=== PATIENT | female | born 1965 | race Caucasian/White ===

== ENCOUNTER 2024-05-19 11:48 | Inpatient (IN) | payer MEDICARE, MEDICAID, SELFPAY ==
[2024-05-19] VITALS (7 sets, daily range): BP systolic 103–135; BP diastolic 63–85; PULSE 81–97; RESP 16–18; TEMP 36.4–36.8; O2SAT 90–92; BMI 30.9; BMI 30.7
--- NOTE | 2024-05-19 11:52 | XR_ITS ---
WS: [id number] Exam: XR chest 1V portable [id number] Date/Time of Exam: 05/19/2024 11:54 AM Reason For Exam: encephalopathy No priors. The lungs are clear and fully inflated. Normal cardiomediastinal silhouette. No pleural effusions. De generative changes of both shoulders. Marked gaseous dilatation of visualized colonic loops in the up per abdomen. Recommendations: A dedicated abdominal survey and/or abdominal pelvic CT scan with IV contrast might be considered for further work-up. XR/XR chest 1V portable [id number] IMPRESSION: 1. No acute cardiopulmonary finding. 2. Marked dilatation of visualized colonic loops in the upper abdomen. This danae ht represent chronic megacolon however acute colon obstruction could have this same appearance.
--- NOTE | 2024-05-19 11:52 | ECG_ITS ---
[facility] Test Date: 2024-05-19 Pat Name: Darlene Joseph Department: Room: Gender: Female Director Web: : 1965 Requested By: Giana Brito Order Number: [id number] Sigrid MD: Jermaine Chi M.D. Measurements Intervals Cache Rate: 91 P: 46 KS: 135 QRS: 26 QRSD: 98 T: 31 QT: 341 QTc: 421 Interpretive Statements SINUS RHYTHM POSSIBLE INFERIOR MYOCARDIAL INFARCTION , PROBABLY OLD [30 ms Q WAVE IN II/aVF] No previous ECG available for comparison Electronically Signed On 05-19-2024 23:01:13 CDT by Jermaine Chi M.D. [email or web address]
[2024-05-19 12:10] LABS: Basophils % 0.3 %; Eosinophils % 1.1 %; Hematocrit 45.1 % (36-47); Lymphocytes # 0.7 10^3/uL (0.8-4.8); Lymphocytes % 18.7 %; Mean Corpuscular HGB Conc 32.4 g/dL (30-55); Mean Corpuscular Hemoglobin 29.9 pg (27-33); Mean Corpuscular Volume 92.2 fl (85-98); Mean Platelet Volume 10.2 fL (7.4-10.4); Monocytes # 0.4 10^3/uL (0.2-0.9); Monocytes % 11.8 %; Neutrophils # 2.54 10^3/uL (1.8-7.7); Neutrophils % 67.8 %; Nucleated Red Blood Cells % 0 %; Platelet Count 277 10^3/cmm (157-399); Red Blood Count 4.89 10^6/uL (3.85-5.65); Red Cell Distribution Width 14.5 % (12.1-15.1); White Blood Count 3.74 10^3/uL (3.29-11.43)
--- NOTE | 2024-05-19 12:16 | XR_ITS ---
WS: [email or web address] Exam: XR abdomen 1V* [id number] Date/Time of Exam: 05/19/2024 12:20 PM Reason For Exam: abnormal bowel on chest xray Exam: XR abdomen 1V* [id number] No comparisons. There is marked gaseous distention of the colon. Maximal diameter of the hepatic flexure is 7.8 cm. N o free air identified. A bowel loop noted in the LEFT pelvis may represent a length of small bowel ve rsus sigmoid colon with diverticuli. No obvious organ enlargement. Recommendations: Contrast CT scan of the abdomen and pelvis is recommended for further work-up. XR/XR abdomen 1V* [id number] IMPRESSION: 1. Colonic dilatation as noted above. This may represent chronic megacolon vers us acute colonic obstruction. 2. No free air identified.
--- NOTE | 2024-05-19 12:17 | ED.C_ITS ---
HPI - Psych 2 General: Chief Complaint: Psychiatric Symptoms Stated Complaint: violent to staff Time Seen by Provider: 05/19/24 11:48 History of Present Illness: 58-year-old female with a history of schizoaffective disorder, ulcerative colitis, history of intestinal obstructions, and bipolar disorder who presents to the emergency room from [facility] with worsening behavioral problems. Witness statements say that she has been on eating strike for 5 days. That her behaviors are getting out of control. She was hitting staff with a box of tissues. Cussing at staff. Throwing the tissues at staff. Tried to throw her walker at staff. She does say she would kill herself with a knife. She has no chest pain and no abdominal pain. She had an abnormal bowel on x-ray and went back to push on her belly which was nontender and she was ravenously eating a cheeseburger. snf documentation mentions an unspecified bowel obstruction/volvulus 3-4 times in her history. Related Data Home Medications Medication Instructions Recorded Confirmed acetaminophen 325 mg tablet 325 mg PO BID Pain 05/19/24 05/19/24 (Tylenol) albuterol sulfate 90 mcg/actuation 1 puff inhalation Q6H PRN 05/19/24 05/19/24 aerosol inhaler obstructive pulmonary albuterol sulfate 90 mcg/actuation 1 inh inhalation QID PRN chronic 05/19/24 05/19/24 aerosol inhaler (Ventolin HFA) obdtructive pulmonary budesonide 0.5 mg/2 mL suspension 0.5 mg inhalation BID PRN acute 05/19/24 05/19/24 for nebulization cough buspirone 5 mg tablet 5 mg PO TID 05/19/24 05/19/24 cholecalciferol (vitamin D3) 25 50 mcg PO DAILY 05/19/24 05/19/24 mcg (1,000 unit) capsule (Vitamin D3) cyanocobalamin (vitamin B-12) 500 500 mcg PO DAILY 05/19/24 05/19/24 mcg tablet (Vitamin B-12) escitalopram oxalate 10 mg tablet 10 mg PO DAILY 05/19/24 05/19/24 guaifenesin 100 mg/5 mL oral liquid 200 mg PO Q8H PRN acute cough 05/19/24 05/19/24 ipratropium 0.5 mg-albuterol 3 mg 3 ml inhalation Q6H PRN acute cough 05/19/24 05/19/24 (2.5 mg base)/3 mL nebulization soln lactulose 10 gram/15 mL oral 15 ml PO DAILY PRN altered mental 05/19/24 05/19/24 solution status melatonin 3 mg tablet 3 mg PO DAILY 05/19/24 05/19/24 nystatin 100,000 unit/gram topical See Rx Instructions .Route 05/19/24 05/19/24 powder .COMPLEX PRN unspecified skin changes ondansetron 4 mg disintegrating 4 mg PO Q6H PRN Nausea And Vomiting 05/19/24 05/19/24 tablet paliperidone palmitate 117 mg/0.75 1 mg IM .MONTHLY 05/19/24 05/19/24 mL intramuscular syringe (Invega Sustenna) pantoprazole 40 mg tablet,delayed 40 mg PO DAILY 05/19/24 05/19/24 release polyethylene glycol 3350 17 4 g PO DAILY 05/19/24 05/19/24 gram/dose oral powder (Miralax) potassium chloride 20 mEq 20 meq PO DAILY 05/19/24 05/19/24 tablet,extended release(part/cryst) prazosin 1 mg capsule 1 mg PO BEDTIME 05/19/24 05/19/24 sennosides 8.6 mg-docusate sodium 1 tab-cap PO BEDTIME 05/19/24 05/19/24 50 mg tablet (Senna-S) simethicone 125 mg chewable tablet 125 mg PO TID PRN gas pain 05/19/24 05/19/24 trazodone 50 mg tablet 50 mg PO BEDTIME 05/19/24 05/19/24 valbenazine 80 mg capsule 80 mg PO DAILY 05/19/24 05/19/24 (Ingrezza) Allergies Allergy/AdvReac Type Severity Reaction Status Date / Time No Known Allergies Allergy Verified 05/19/24 11:55 Review of Systems 2 Narrative: Constitutional symptoms: Negative except as documented in HPI. Skin symptoms: Negative except as documented in HPI. Eye symptoms: Negative except as documented in HPI. ENMT symptoms: Negative except as documented in HPI. Respiratory symptoms: Negative except as documented in HPI. Cardiovascular symptoms: Negative except as documented in HPI. Gastrointestinal symptoms: Negative except as documented in HPI. Genitourinary symptoms: Negative except as documented in HPI. Musculoskeletal symptoms: Negative except as documented in HPI. Neurologic symptoms: Negative except as documented in HPI. Psychiatric symptoms: Negative except as documented in HPI. Endocrine symptoms: Negative except as documented in HPI. Physical Exam 2 Narrative: EXAM NARRATIVE: General: Alert, no acute distress. Skin: Warm, dry. Head: Normocephalic, atraumatic. Neck: Supple, trachea midline. Eye: Extraocular movements are intact. Ears, nose, mouth and throat: mucosa moist. Cardiovascular: Regular, Normal peripheral perfusion. Respiratory: Lungs are clear to auscultation, respirations are non-labored, breath sounds are equal, Symmetrical chest wall expansion. Gastrointestinal: Soft, Nontender, Non distended Musculoskeletal: Normal ROM, no deformity. Neurological: Alert and oriented, No focal neurological deficit observed. Psychiatric: Cooperative, very odd affect. Patient is voraciously eating a cheeseburger when I evaluate her. Course 2 Vital Signs: Vital signs: Vital Signs Temperature 98.3 F 05/19/24 11:49 Pulse Rate 97 05/19/24 11:49 Respiratory Rate 18 05/19/24 11:49 Blood Pressure 109/70 05/19/24 11:49 Pulse Oximetry 90 05/19/24 11:49 Oxygen Delivery Me thod Room Air 05/19/24 11:49 MDM - Psych Medical Decision Making Medical decision making: Differential diagnosis for patient with reported psychosis with plan for psychiatric admission including but not limited to and based on the above HPI, review of systems and physical exam: concerns for infection, alcohol intoxication, cardiac issues or other medical problems prior to psychiatric admission. Orders placed to evaluate differential diagnosis based on the above differential, HPI and physical exam labwork, ekg ordered to evaluate the pathologies and to clear the patient medically prior to psychiatric admission EKG: Time 1254. Rate 91. Normal sinus rhythm, No ST-T changes, no ectopy, normal [place] & QRS intervals, This was reviewed and interpreted by myself the ER physician at 1258 Chest x-ray: No acute process. No infiltrate. No pneumothorax. This was reviewed and interpreted by myself the ER physician. There is concern for megacolon on the chest x-ray so an abdominal film was done. Abdominal x-ray: Appears to have a megacolon. Patient is nontender and has been evaluated by general surgery so this is felt to be chronic and not acute. This was reviewed and interpreted by myself the emergency room physician. I also reviewed the radiology report. Lab Review: Laboratory results were reviewed and interpreted by myself the emergency room physician. - Medically cleared. - EKG shows no ischemic changes. - Blood alcohol level is negative, as well as salicylate and Tylenol. - Drug screen is positive for benzodiazepine - Patient does have a urinary tract infection - No anemia. - BUN and creatinine are within normal limits. I reviewed the patient's medical record. Reexamination: Patient has remained stable. She has had no behavioral issues while she is been here. She has been voraciously hungry and has eaten 2 trays of food. No focal motor deficits. No abdominal pain. No vomiting. Consultation: I spoke with Dr. Fernandes with general surgery who evaluated the films and evaluated the patient and feels that this is a chronic megacolon that would require no intervention at this time. Consultation: I spoke with Dr. Hartman with psychiatry. Given her instability and requirements for a walker he feels she would not be appropriate for the Neuropsych Unit but he will consult on the patient and she will be admitted to the hospitalist service. Consultation: I spoke with Dr. Olmedo with the hospitalist service and he agrees to admission. Assessment and plan: Schizoaffective disorder Behavioral issues Suicidal ideation Urinary tract infection Indigestion ?IV Rocephin and IV Pepcid given in the emergency room. -Admission to neuropsychiatric unit for continued evaluation and treatment. - All lab work was reviewed and interpreted personally by myself, the ER physician - Evaluation and treatment of this problem were appropriate in the emergency setting Lab Data 05/19/24 12:04 05/19/24 12:04 Radiology Impressions Chest X-Ray 05/19/24 11:52 IMPRESSION: 1. No acute cardiopulmonary finding. 2. Marked dilatation of visualized colonic loops in the upper abdomen. This might represent chronic megacolon however acute colon obstruction could have this same appearance. Abdomen X-Ray 05/19/24 12:16 IMPRESSION: 1. Colonic dilatation as noted above. This may represent chronic megacolon versus acute colonic obstruction. 2. No free air identified. Laboratory Results WBC 3.74 10^3/uL (3.29-11.43) 05/19/24 12:04 RBC 4.89 10^6/uL (3.85-5.65) 05/19/24 12:04 Hgb 14.60 g/dL (11.27-16.99) 05/19/24 12:04 Hct 45.1 % (36-47) 05/19/24 12:04 MCV 92.2 fl (85-98) 05/19/24 12:04 MCH 29.9 pg (27-33) 05/19/24 12:04 MCHC 32.4 g/dL (30-55) 05/19/24 12:04 RDW 14.5 % (12.1-15.1) 05/19/24 12:04 Plt Count 277 10^3/cmm (157-399) 05/19/24 12:04 MPV 10.2 fL (7.4-10.4) 05/19/24 12:04 Neut % (Auto) 67.8 % 05/19/24 12:04 Lymph % (Auto) 18.7 % 05/19/24 12:04 [place] % (Auto) 11.8 % 05/19/24 12:04 Eos % (Auto) 1.1 % 05/19/24 12:04 Baso % (Auto) 0.3 % 05/19/24 12:04 Neut # (Auto) 2.54 10^3/uL (1.8-7.7) 05/19/24 12:04 Lymph # (Auto) 0.7 10^3/uL (0.8-4.8) L 05/19/24 12:04 [place] # (Auto) 0.4 10^3/uL (0.2-0.9) 05/19/24 12:04 Eos # (Auto) 0.0 10^3/uL (0.0-0.8) 05/19/24 12:04 Baso # (Auto) 0.0 10^3/uL (0.0-0.1) 05/19/24 12:04 Nucleated RBC % (auto) 0 % 05/19/24 12:04 Nucleated RBCs # 0.0 /100WBC 05/19/24 12:04 Sodium 137 mmol/L (136-145) 05/19/24 12:04 Potassium 4.3 mmol/L (3.5-5.1) 05/19/24 12:04 Chloride 102 mmol/L (98-107) 05/19/24 12:04 Carbon Dioxide 25 mmol/L (22-29) 05/19/24 12:04 Anion Gap 14.3 (5-19) 05/19/24 12:04 BUN 19 mg/dL (8-23) 05/19/24 12:04 Creatinine 0.7 mg/dL (0.5-0.9) 05/19/24 12:04 GFR Calculation 85.4 mL/min (90-130) L 05/19/24 12:04 Glucose 93 mg/dL (65-115) 05/19/24 12:04 Calculated Osmolality 286 mOsm/kg (285-295) 05/19/24 12:04 Lactic Acid 0.8 mmol/L (0.5-2.2) 05/19/24 12:04 Calcium 9.3 mg/dL (8.5-10.5) 05/19/24 12:04 Total Bilirubin 0.6 mg/dL (0.15-1.2) 05/19/24 12:04 AST 9 U/L (0-32) 05/19/24 12:04 ALT 7 U/L (0-33) 05/19/24 12:04 Alkaline Phosphatase 154 U/L (35-105) H 05/19/24 12:04 C-Reactive Protein 28.9 mg/L (0.0-4.9) H 05/19/24 12:04 Total Protein 7.2 g/dL (6.6-8.7) 05/19/24 12:04 Albumin 4.0 g/dL (3.5-5.2) 05/19/24 12:04 Globulin 3.2 g/dL (1.3-4.6) 05/19/24 12:04 Procalcitonin 0.15 ng/mL (0-0.5) 05/19/24 12:04 TSH 1.02 uIU/mL (0.27-4.20) 05/19/24 12:04 Urine Color Dark yellow (Yellow) A 05/19/24 12:55 Urine Appearance Turbid (CLEAR) A 05/19/24 12:55 Urine pH 6.0 (5-7) 05/19/24 12:55 Ur Specific [place] 1.041 (1.005-1.030) H 05/19/24 12:55 Urine Protein 1+ (Negative) A 05/19/24 12:55 Urine Glucose (UA) Negative (Normal) 05/19/24 12:55 Urine Ketones 1+ (Negative) H 05/19/24 12:55 Urine Blood 1+ (Negative) A 05/19/24 12:55 Urine Nitrate Positive (Negative) A 05/19/24 12:55 Urine Bilirubin 2+ (Negative) H 05/19/24 12:55 Urine Urobilinogen 1.0 mg/dL (Negative) 05/19/24 12:55 Ur Leukocyte Esterase 2+ (Negative) A 05/19/24 12:55 Urine RBC 5-10 /hpf (0-2) H 05/19/24 12:55 Urine WBC 10-15 /hpf (0-5) H 05/19/24 12:55 Ur Squamous Epith Cells 6-10 /hpf (0-5) 05/19/24 12:55 Calcium Oxalate Crystal 40-55 /hpf H 05/19/24 12:55 Amorphous Sediment Not Reportable 05/19/24 12:55 Urine Bacteria 4+ /hpf (NONE) H 05/19/24 12:55 Hyaline Casts 6.26 /lpf 05/19/24 12:55 Salicylates < 0.3 mg/dL (3-10) L 05/19/24 12:04 Urine Opiates Screen Negative ng/mL (Negative) 05/19/24 12:55 Acetaminophen < 5.0 ug/mL (10-30) L 05/19/24 12:04 Ur Barbiturates Screen Negative ng/mL (Negative) 05/19/24 12:55 Ur Phencyclidine Scrn Negative ng/mL (Negative) 05/19/24 12:55 Ur Amphetamines Screen Negative ng/mL (Negative) 05/19/24 12:55 U Benzodiazepines Scrn Positive ng/mL (Negative) H 05/19/24 12:55 Urine Cocaine Screen Negative ng/mL (Negative) 05/19/24 12:55 U Marijuana (THC) Screen Negative ng/mL (Negative) 05/19/24 12:55 Ethyl Alcohol < 10 mg/dL (0-10) 05/19/24 12:04 Coronavirus (PCR) Negative (Negative) 05/19/24 12:56 Influenza A (PCR) Negative (Negative) 05/19/24 12:56 Influenza Type B (PCR) Negative (Negative) 05/19/24 12:56 RSV (PCR) Negative (Negative) 05/19/24 12:56 All radiology interpretation(s) finalized by discharge Discharge Plan Discharge Patient Disposition: Admitted As Inpatient Clinical Impression: Suicidal ideation, Chronic schizoaffective disorder, 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
[2024-05-19 12:46] LABS: Alanine Aminotransferase 7 U/L (0-33); Alkaline Phosphatase 154 U/L (35-105); Anion Gap 14.3 (5-19); Aspartate Amino Transferase 9 U/L (0-32); Blood Urea Nitrogen 19 mg/dL (8-23); Calcium 9.3 mg/dL (8.5-10.5); Carbon Dioxide 25 mmol/L (22-29); Chloride 102 mmol/L (98-107); Creatinine Clr Calc Pharmacy 88.3444; Globulin 3.2 g/dL (1.3-4.6); Glomerular Filtration Rate 85.4 mL/min (90-130); Glucose 93 mg/dL (65-115); Osmolality Calculated 286 mOsm/kg (285-295); Potassium 4.3 mmol/L (3.5-5.1); Sodium 137 mmol/L (136-145); Thyroid Stimulating Hormone 1.02 uIU/mL (0.27-4.20); Total Bilirubin 0.6 mg/dL (0.15-1.2); Total Protein 7.2 g/dL (6.6-8.7)
[2024-05-19 12:50] LABS: Acetaminophen < 5.0 ug/mL (10-30); Alcohol Level < 10 mg/dL (0-10); Salicylate < 0.3 mg/dL (3-10)
[2024-05-19 13:06] LABS: Bilirubin Urine 2+ (Negative); Blood Urine 1+ (Negative); Glucose Urine UA Negative (Normal); Ketones Urine 1+ (Negative); Leukocyte Esterase Urine 2+ (Negative); Nitrate Urine Positive (Negative); Protein Urine 1+ (Negative); Urine Appearance Turbid (CLEAR); Urine Color Dark Yellow (Yellow)
[2024-05-19 13:13] LABS: Amphetamines Screen Urine Negative (Negative); Barbiturates Screen Urine Negative (Negative); Benzodiazepines Screen Urine Positive (Negative); Cocaine Screen Urine Negative (Negative); Opiate Screen Urine Negative (Negative); PCP Screen Urine Negative (Negative); THC Screen Urine Negative (Negative)
[2024-05-19 13:24] LABS: Hyaline Casts Urine 6.26 /lpf
[2024-05-19 13:31] LABS: Specific Gravity, Urine 1.041 (1.005-1.030)
[2024-05-19 13:34] LABS: Add Urine Culture? Yes; Bacteria Urine 4+ /hpf; Calcium Oxalate Crystals Urine 40-55 /hpf
[2024-05-19] MEDS: cephALEXin 500 mg Capsule PO (13:40)
[2024-05-19 13:42] LABS: Covid PCR NEGATIVE (Negative); Influenza A NEGATIVE (Negative); Influenza B NEGATIVE (Negative); Respiratory Syncytial Virus Ce NEGATIVE (Negative)
--- NOTE | 2024-05-19 14:00 | W.PM.PSYCONS ---
Providers/Reason for Consult Consulting Physican/Specialty*: Onesimo Hartman MD/Psychiatry Reason for Consult*: suicidal ideation Psych Consult HPI History of Present Illness Darlene Joseph is a 58 year old female admitted with complaints of abdominal discomfort with a history of constipation for the past 3 days and no bowel movements. She states that she had been residing at the [facility] for the past 2 weeks. She reports that she has been feeling suicidal and stated that she was having thoughts of cutting herself with a sharp knife. She has no access to a sharp knife. She denied depression. She reports that she has a history of significant behavioral issues and states that she has been in a few nursing homes in the past. She states that she had been at the [facility] for 4 years prior to arriving at [facility]. She reports that she has a history of auditory hallucinations but states that her voices have not been present recently. She states that she has been compliant with her existing oral medications except for the past 3 days at which time she states that her abdominal discomfort had caused her to not want to eat or take her pills. She does acknowledge having a history of being abusive towards staff and has a history of aggression that is led to her being unable to be cared for by her own family members. She had stated that she has struggled to make friends at her new facility in [place]. The patient reports that she still shares enjoyment in routine and previously enjoyable activities including reading romance novels and completing word searches. The patient reports that she has had suicidal thoughts for years. She denies any change in energy. She reports that she does not frequently cry. She denies any current drug use. Psychiatric history: Patient had suggested that she had been hospitalized more than 10 times for psychiatric reasons but states that she cannot remember when she was last psychiatrically hospitalized. She had reported that she has been seen by many psychiatrist in the past and reports that she has been on many medications. Medical history: As stated in medical note. 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 She reports that she required special education services. She had denied any history of sexual physical or emotional abuse. She had reported having significant behavioral problems along with having received special education services up until her high school graduation. She reports having worked a variety of jobs. She states that her sister is her legal guardian. She had reported that she has no children but had previously been for an unspecified years but is now as her had due to a pulmonary embolism. Meds Home Medications and Allergies Home Medications Medication Instructions Recorded Confirmed Last Taken Type acetaminophen 325 mg tablet 325 mg PO BID Pain 05/19/24 05/19/24 Unknown History (Tylenol) albuterol sulfate 90 mcg/actuation 1 puff inhalation Q6H PRN 05/19/24 05/19/24 Unknown History aerosol inhaler obstructive pulmonary albuterol sulfate 90 mcg/actuation 1 inh inhalation QID PRN chronic 05/19/24 05/19/24 Unknown History aerosol inhaler (Ventolin HFA) obdtructive pulmonary budesonide 0.5 mg/2 mL suspension 0.5 mg inhalation BID PRN acute 05/19/24 05/19/24 Unknown History for nebulization cough buspirone 5 mg tablet 5 mg PO TID 05/19/24 05/19/24 Unknown History cholecalciferol (vitamin D3) 25 50 mcg PO DAILY 05/19/24 05/19/24 Unknown History mcg (1,000 unit) capsule (Vitamin D3) cyanocobalamin (vitamin B-12) 500 500 mcg PO DAILY 05/19/24 05/19/24 Unknown History mcg tablet (Vitamin B-12) escitalopram oxalate 10 mg tablet 10 mg PO DAILY 05/19/24 05/19/24 Unknown History guaifenesin 100 mg/5 mL oral liquid 200 mg PO Q8H PRN acute cough 05/19/24 05/19/24 Unknown History ipratropium 0.5 mg-albuterol 3 mg 3 ml inhalation Q6H PRN acute cough 05/19/24 05/19/24 Unknown History (2.5 mg base)/3 mL nebulization soln lactulose 10 gram/15 mL oral 15 ml PO DAILY PRN altered mental 05/19/24 05/19/24 Unknown History solution status melatonin 3 mg tablet 3 mg PO DAILY 05/19/24 05/19/24 Unknown History nystatin 100,000 unit/gram topical See Rx Instructions .Route 05/19/24 05/19/24 Unknown History powder .COMPLEX PRN unspecified skin changes ondansetron 4 mg disintegrating 4 mg PO Q6H PRN Nausea And Vomiting 05/19/24 05/19/24 Unknown History tablet paliperidone palmitate 117 mg/0.75 1 mg IM .MONTHLY 05/19/24 05/19/24 Unknown History mL intramuscular syringe (Invega Sustenna) pantoprazole 40 mg tablet,delayed 40 mg PO DAILY 05/19/24 05/19/24 Unknown History release polyethylene glycol 3350 17 4 g PO DAILY 05/19/24 05/19/24 Unknown History gram/dose oral powder (Miralax) potassium chloride 20 mEq 20 meq PO DAILY 05/19/24 05/19/24 Unknown History tablet,extended release(part/cryst) prazosin 1 mg capsule 1 mg PO BEDTIME 05/19/24 05/19/24 Unknown History sennosides 8.6 mg-docusate sodium 1 tab-cap PO BEDTIME 05/19/24 05/19/24 Unknown History 50 mg tablet (Senna-S) simethicone 125 mg chewable tablet 125 mg PO TID PRN gas pain 05/19/24 05/19/24 Unknown History trazodone 50 mg tablet 50 mg PO BEDTIME 05/19/24 05/19/24 Unknown History valbenazine 80 mg capsule 80 mg PO DAILY 05/19/24 05/19/24 Unknown History (Emeryza) Allergies Allergy/AdvReac Type Severity Reaction Status Date / Time No Known Allergies Allergy Verified 05/19/24 11:55 PFSH NPU PFSH: Medical History (Updated 05/19/24 @ 19:25 by Onesimo Hartman MD) Chronic schizoaffective disorder Surgical History (Updated 05/19/24 @ 15:19 by Samson Mc MD) History of abdominal surgery History of left hip replacement Family History (Updated 05/19/24 @ 15:20 by Samson Mc MD) Other No pertinent family history Social History (Updated 05/19/24 @ 15:20 by Samson Mc MD) Smoking and tobacco/nicotine status: never used tobacco/nicotine Alcohol intake: never Substance/Drug Use: never Mental Status Exam MSE Comments: She is an obese white female who appeared her stated age who was pleasant and cooperative on interview. She had a mild speech impediment with normal rate and volume. There was no evidence of any abnormal involuntary motor movements tics or tremors appreciated. Her mood was described as okay. Her affect was slightly restricted. Her thought process was linear and logical. She revealed feeling suicidal with a plan to cut herself with a knife. She denied any homicidal ideation. There were no overall themes of depression noted or a sense of sadness despite reporting feeling suicidal. She was alert and oriented x 3. Her recent and remote memory appeared grossly intact. Her fund of knowledge appeared poor. She did not appear to be responding to internal stimuli. There was no clear evidence of delusional thinking. Her insight is impaired. Her judgment is poor. Her impulse control appeared fair at this time. Vitals/I&O/Wt Last Vital Signs Temp 98.3 F 05/19/24 11:49 Pulse 97 05/19/24 11:49 Resp 18 05/19/24 11:49 BP 109/70 05/19/24 11:49 Pulse Ox 90 05/19/24 11:49 O2 Del Method Room Air 05/19/24 11:49 Weight last 48 hrs Weight 81.647 kg Data NPU 05/19/24 12:04 05/19/24 12:04 A&P Assessment and plan (1) Chronic schizoaffective disorder: (2) Impulse control disorder, unspecified: (3) Suicidal ideation: Plan 58-year-old female with a history of borderline intellectual functioning along with a past history of reported auditory hallucinations currently on antipsychotic medications while reporting a history of depressed mood. She does endorse suicidal ideation at this time. She reported that the suicidal ideation appeared to be associated with her pain over the past 3 days. #1. Will attempt to gather collateral information. #2. Consider increase in Lexapro to 20 mg to target depression. I would recommend simplification of her psychiatric medications she is on an extremely low-dose of BuSpar and consolidation of these medications would probably be preferable to multiple serotonin agents. #3 will continue to follow. The patient may be a candidate for inpatient psychiatric hospitalization on a unit that is more capable of managing her problems given her intellectual functioning. Attestations NPU Medical Necessity Statement*: Continue medical treatment: will consider geropsychiatry transfer if necessary. Coding Level of Care Code Acute Code for g Fwd Diagnoses Chronic schizoaffective disorder F25.9 Impulse control disorder, unspecified F63.9 Suicidal ideation R45.851
--- NOTE | 2024-05-19 14:36 | P.CONIM_ITS ---
Providers/Reason For Consult 2 Consulting Physician/Specialty*: Dr. Fernandes general surgery Reason for Consult*: Incidental megacolon on KUB History of Present Illness History of Present Illness Darlene Joseph is a 58 year old female with history of behavioral problems. She is institutionalized. 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 Patient is currently tolerating a regular diet and has had 2 bowel movements today. Abdomen is unremarkable. Medications/Allergies Home Medications Medication Instructions Recorded Confirmed Last Taken Type acetaminophen 325 mg tablet 325 mg PO BID Pain 05/19/24 05/19/24 Unknown History (Tylenol) albuterol sulfate 90 mcg/actuation 1 puff inhalation Q6H PRN 05/19/24 05/19/24 Unknown History aerosol inhaler obstructive pulmonary albuterol sulfate 90 mcg/actuation 1 inh inhalation QID PRN chronic 05/19/24 05/19/24 Unknown History aerosol inhaler (Ventolin HFA) obdtructive pulmonary budesonide 0.5 mg/2 mL suspension 0.5 mg inhalation BID PRN acute 05/19/24 05/19/24 Unknown History for nebulization cough buspirone 5 mg tablet 5 mg PO TID 05/19/24 05/19/24 Unknown History cholecalciferol (vitamin D3) 25 50 mcg PO DAILY 05/19/24 05/19/24 Unknown History mcg (1,000 unit) capsule (Vitamin D3) cyanocobalamin (vitamin B-12) 500 500 mcg PO DAILY 05/19/24 05/19/24 Unknown History mcg tablet (Vitamin B-12) escitalopram oxalate 10 mg tablet 10 mg PO DAILY 05/19/24 05/19/24 Unknown History guaifenesin 100 mg/5 mL oral liquid 200 mg PO Q8H PRN acute cough 05/19/24 05/19/24 Unknown History ipratropium 0.5 mg-albuterol 3 mg 3 ml inhalation Q6H PRN acute cough 05/19/24 05/19/24 Unknown History (2.5 mg base)/3 mL nebulization soln lactulose 10 gram/15 mL oral 15 ml PO DAILY PRN altered mental 05/19/24 05/19/24 Unknown History solution status melatonin 3 mg tablet 3 mg PO DAILY 05/19/24 05/19/24 Unknown History nystatin 100,000 unit/gram topical See Rx Instructions .Route 05/19/24 05/19/24 Unknown History powder .COMPLEX PRN unspecified skin changes ondansetron 4 mg disintegrating 4 mg PO Q6H PRN Nausea And Vomiting 05/19/24 05/19/24 Unknown History tablet paliperidone palmitate 117 mg/0.75 1 mg IM .MONTHLY 05/19/24 05/19/24 Unknown History mL intramuscular syringe (Invega Sustenna) pantoprazole 40 mg tablet,delayed 40 mg PO DAILY 05/19/24 05/19/24 Unknown History release polyethylene glycol 3350 17 4 g PO DAILY 05/19/24 05/19/24 Unknown History gram/dose oral powder (Miralax) potassium chloride 20 mEq 20 meq PO DAILY 05/19/24 05/19/24 Unknown History tablet,extended release(part/cryst) prazosin 1 mg capsule 1 mg PO BEDTIME 05/19/24 05/19/24 Unknown History sennosides 8.6 mg-docusate sodium 1 tab-cap PO BEDTIME 05/19/24 05/19/24 Unknown History 50 mg tablet (Senna-S) simethicone 125 mg chewable tablet 125 mg PO TID PRN gas pain 05/19/24 05/19/24 Unknown History trazodone 50 mg tablet 50 mg PO BEDTIME 05/19/24 05/19/24 Unknown History valbenazine 80 mg capsule 80 mg PO DAILY 05/19/24 05/19/24 Unknown History (Ingrezza) Allergies Allergy/AdvReac Type Severity Reaction Status Date / Time No Known Allergies Allergy Verified 05/19/24 11:55 PFSH Acute 2 PFSH: Medical History (Updated 05/19/24 @ 15:22 by Samson Mc MD) Chronic schizoaffective disorder Surgical History (Updated 05/19/24 @ 15:19 by Samson Mc MD) History of abdominal surgery History of left hip replacement Family History (Updated 05/19/24 @ 15:20 by Samson Mc MD) Other No pertinent family history Social History (Updated 05/19/24 @ 15:20 by Samson Mc MD) Smoking and tobacco/nicotine status: never used tobacco/nicotine Alcohol intake: never Substance/Drug Use: never Vitals/I&O/Wt Last Vital Signs Temp 98.3 F 05/19/24 11:49 Pulse 97 05/19/24 11:49 Resp 18 05/19/24 11:49 BP 109/70 05/19/24 11:49 Pulse Ox 90 05/19/24 11:49 O2 Del Method Room Air 05/19/24 11:49 Weight last 48 hrs Weight 180 lb Physical Exam 2 Narrative: Chest: Unlabored breathing room air. No lymphadenopathy. Heart: Regular rate and rhythm. Abdomen: Soft, nontender, nondistended. No masses or lymphadenopathy. Data 05/19/24 12:04 05/19/24 12:04 A&P Assessment and plan (1) Abdominal pain: Plan 58-year-old female who presents for some behavioral issues. KUB performed an incidental chronic megacolon found on study. Patient is currently tolerating a regular diet, and having bowel movements. She is not complaining of abdominal pain on discussion with her. KUB findings incidental and there is no indication currently to continue working it up. Coding Level of Care Code 43889 Diagnoses Abdominal pain R10.9 Time Spent (min) 30
--- NOTE | 2024-05-19 14:40 | PC.NURSE ---
96 hour hold rights read and reviewed with patient. Patient verbalized understandings and copy of rights given to patient.
[2024-05-19] MEDS: cefTRIAXone 1,000 mg SDV 1000 MG IVP (14:42)
[2024-05-19] MEDS: famotidine 20 mg/2 mL INJ 40 MG IVP (14:44)
[2024-05-19 14:52] LABS: Lactic Sepsis W/Reflex 0.8 mmol/L (0.5-2.2)
--- NOTE | 2024-05-19 14:56 | CTR_ITS ---
PROCEDURE INFORMATION: Exam: CT Abdomen And Pelvis With Contrast Exam date and time: 05/19/2024 4:55 PM Age: 58 years old Clinical indication: Abdominal pain; Additional info: Abdominal pain, obstruction? TECHNIQUE: Imaging protocol: Computed tomography of the abdomen and pelvis with contrast. Radiation optimization: All CT scans at this facility use at least one of these dose optimization techniques: automated exposure control; mA and/or kV adjustment per patient size (includes targeted exams where dose is matched to clinical indication); or iterative reconstruction. Contrast material: OMNI 350; Contrast volume: 100 ml; Contrast route: INTRAVENOUS (IV); COMPARISON: CR XR abdomen 1V* [id number] 05/19/2024 12:35 PM RADIATION DOSE METRICS: Total DLP (mGy-cm): 797.66 FINDINGS: Lungs: Subsegmental bibasilar atelectasis. The visualized lung bases are otherwise grossly clear. Diaphragm: No evidence of diaphragmatic defect. Liver: Hepatic steatosis. No evidence of focal hepatic lesion. Gallbladder and biliary ducts: Unremarkable. No intra-hepatic or extra-hepatic biliary dilatation. Pancreas: Unremarkable. Spleen: Unremarkable. Adrenal glands: Unremarkable. Kidneys and ureters: There are simple appearing renal cysts for which dedicated imaging follow-up is not required. Otherwise no evidence of renal parenchymal abnormality. No hydronephrosis or ureteral stone. Stomach and bowel: Postsurgical changes compatible with prior subtotal colectomy. There are multiple dilated loops of small bowel measuring up to 3.8 cm with air-fluid levels. No discrete transition point, though there is relative change in caliber in the midabdomen (images 45-47 of series 3 there is mild adjacent swirling of the mesentery adjacent to the region in the left hemiabdomen raising the question of a transmesenteric hernia. There is distension of the distal bowel, possibly a chronic postoperative appearance, though difficult to discern given lack of prior exam for comparison. There is transit of oral contrast suggesting incomplete obstruction. There is change in caliber at the level of the rectosigmoid without significant swirling/torsion of the bowel, most suggestive of muscular contraction rather than volvulus. Appendix: Surgically absent. Intraperitoneal space: No evidence of free air or fluid collection. Vasculature: No aneurysmal dilatation or dissection of the abdominal aorta. The celiac trunk, SMA and ANTWON are grossly patent. No evidence of IVC thrombus. The portal vein, SMV and splenic veins are grossly patent. Lymph nodes: No adenopathy. Urinary bladder: Grossly unremarkable. Reproductive: Grossly unremarkable. Bones/joints: No evidence of acute fracture or aggressive osseous lesion. Multilevel chronic compression deformities of the lumbar spine with moderate-severe height loss of L1. Bony retropulsion at this level results in moderate central stenosis and likely contacting of the conus. Consider correlation with follow-up outpatient MRI to evaluate for neural impingement. Total left hip arthroplasty. Chronic fracture of the left pubic body/superior pubic ramus. Soft tissues: No evidence of fluid collection or hematoma in the superficial soft tissues. CT/CT abdomen pelvis w con* [id number] IMPRESSION: 1. Findings concerning for partial small bowel obstruction, possibly in the setting of adhesions or transmesenteric hernia in the central abdomen. 2. 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
[2024-05-19 14:57] LABS: Procalcitonin 0.15 ng/mL (0-0.5)
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
[2024-05-19 15:09] LABS: C Reactive Protein 28.9 mg/L (0.0-4.9)
[2024-05-19 15:32] LABS: NT Pro B Type Natriuretic Pept 76 pg/mL (0-125)
[2024-05-19 15:45] LABS: Ammonia 28 umol/L (11-51)
[2024-05-19] MEDS: iohexol 350 mg/mL 500 mL Btl (per mL) PO (16:07)
[2024-05-19 16:13] LABS: Lipase 17 U/L (13-60)
[2024-05-19 17:03] LABS: Chol HDL Ratio 2.49 mg/dL (0.0-4.40); Cholesterol 174 mg/dL (0-200); HDL Cholesterol 70 mg/dL (60-100); LDL Cholesterol Calculated 85 mg/dL (50-129); LDL HDL Ratio 1.21 RATIO (0.00-3.22); Thyroid Stimulating Hormone 1.04 uIU/mL (0.27-4.20); Triglycerides 96 mg/dL (0-150)
[2024-05-19 17:07] LABS: Estmated Average Glucose 111; Hemoglobin A1C 5.5 % (4.0-6.0)
[2024-05-19] MEDS: iohexol 350 mg/mL 500 mL Btl (per mL) IV (17:15)
[2024-05-19] MEDS: enoxaparin 40 mg/0.4 mL Syringe SUBCUT (17:33)
[2024-05-19] MEDS: prazosin 1 mg Capsule PO (20:50)
[2024-05-19] MEDS: BuSPIRONE 10 mg Tablet 5 MG PO (20:50)
[2024-05-19] MEDS: dextrose 5%-sod chloride 0.9% 1,000 ML 75 ML IV (20:50)
[2024-05-19] MEDS: trazodone 50 mg Tablet PO (20:51)
[2024-05-19] MEDS: ondansetron 2 mg/ML SDV 2 mL 4 MG IVP (22:12)
[2024-05-20] VITALS (8 sets, daily range): BP systolic 98–132; BP diastolic 58–77; PULSE 57–84; RESP 16–17; TEMP 36.5–36.9; O2SAT 90–94
[2024-05-20] MEDS: diphenhydrAMINE 25 mg Capsule PO (00:40)
[2024-05-20] MEDS: cefTRIAXone 1,000 mg SDV 1000 MG IVP (04:42)
[2024-05-20] MEDS: pantoprazole 40 mg SDV IVP ×2 (04:42→15:52)
[2024-05-20 05:46] LABS: Basophils % 0.5 %; Eosinophils # 0.1 10^3/uL (0.0-0.8); Eosinophils % 2.8 %; Lymphocytes # 1.3 10^3/uL (0.8-4.8); Lymphocytes % 30.8 %; Mean Corpuscular HGB Conc 31.5 g/dL (30-55); Mean Corpuscular Hemoglobin 29.5 pg (27-33); Mean Corpuscular Volume 93.7 fl (85-98); Mean Platelet Volume 10.9 fL (7.4-10.4); Monocytes # 0.5 10^3/uL (0.2-0.9); Monocytes % 11.3 %; Neutrophils # 2.35 10^3/uL (1.8-7.7); Neutrophils % 54.4 %; Nucleated Red Blood Cells % 0 %; Platelet Count 245 10^3/cmm (157-399); Red Blood Count 4.27 10^6/uL (3.85-5.65); Red Cell Distribution Width 14.6 % (12.1-15.1); White Blood Count 4.32 10^3/uL (3.29-11.43)
[2024-05-20 06:15] LABS: Alanine Aminotransferase < 5 U/L (0-33); Albumin Level 3.6 g/dL (3.5-5.2); Alkaline Phosphatase 135 U/L (35-105); Anion Gap 13.8 (5-19); Aspartate Amino Transferase 8 U/L (0-32); Blood Urea Nitrogen 12 mg/dL (8-23); Calcium 8.4 mg/dL (8.5-10.5); Carbon Dioxide 23 mmol/L (22-29); Chloride 103 mmol/L (98-107); Creatinine Clr Calc Pharmacy 94.9828; Globulin 2.1 g/dL (1.3-4.6); Glucose 98 mg/dL (65-115); Osmolality Calculated 282 mOsm/kg (285-295); Potassium 3.8 mmol/L (3.5-5.1); Sodium 136 mmol/L (136-145); Total Bilirubin 0.3 mg/dL (0.15-1.2); Total Protein 5.7 g/dL (6.6-8.7)
--- NOTE | 2024-05-20 08:30 | XR_ITS ---
WS: [id number] Exam: XR KUB portable [id number] Date/Time of Exam: 05/20/2024 8:32 AM Reason For Exam: partial sbo follow up Comparison 05/19/2024. Again noted is gaseous distention of the large bowel. There is radiographic contrast in the rectosigm oid colon. No free air. Organ margins are obscured. Intact LEFT hip prosthesis. XR/XR KUB portable [id number] IMPRESSION: 1. Continued dilatation of the colon. 2. Radiographic contrast seen in the rectosigmoid colon.
[2024-05-20] MEDS: escitalopram 10 mg Tablet PO (09:10)
[2024-05-20] MEDS: BuSPIRONE 10 mg Tablet 5 MG PO ×3 (09:10→20:58)
[2024-05-20] MEDS: dextrose 5%-sod chloride 0.9% 1,000 ML 75 ML IV (09:12)
--- NOTE | 2024-05-20 11:54 | PC.CHAP ---
Pastoral Care Encounter/Spiritual Assessment Type of Contact [] Declined rod greaser visit [] Patient/Family/Request visit [] Outpatient visit [] Follow-up visit [] Physician referral [] Code/Alert [x] Routine visit [] Staff referral [] Actively dying [] Patient sleeping [] Family support [] [] Out of room [] Palliative care [] [] Receiving care in room [] Pre-surgical visit [] Trauma [] Long length of stay [] ICU visit [] Other: Relational/Emotional Strength [] Patient feels connected with others/family/visitors/staff [x] Distress [x] Loneliness/isolation [] Abandonment Spirituality of Patient [] Person of Rani [] Attends Mormon of their Rani [] Believes in Prayer [] Reads Bible or Judaism materials [x] There are Spiritual issues to be addressed Stock Holder Interventions [x] Prayer [x] Active listening [] Non-anxious presence [] Spiritual/emotional support [] Crisis/trauma care [] Spiritual counseling [] Bereavement support [] Provided bereavement packet [] Provided Bible/devotional materials [] Provided toy/stuffed animal, coloring book to patient or family member [] Provided Communion [] Anointing/[place] [] Salvation [] Completed spiritual assessment [] Other: Impact on Illness or Injury [] Angry [x] Fearful [x] Anxious [] Often cries [x] Exhaustion [] Unable to work [] Unable to attend jain [] Unable to walk/stand [] Unable to read [] Unable to drive [] Unable to eat/drink [] Unable to sleep [] Unable to be with family [] Patient intubated [] Other: Summary P+St. Time spent with patient 10 Min
--- NOTE | 2024-05-20 15:45 | PC.SOCIAL ---
IMM updated Updated pt on IMM. no questions voiced. Provided pt a copy. Initialed, dated, & timed a copy & placed in chart.
[2024-05-20] MEDS: enoxaparin 40 mg/0.4 mL Syringe SUBCUT (15:52)
--- NOTE | 2024-05-20 17:00 | P.PN_ITS ---
Subjective 2 Subjective: Patient was seen this morning, she continues to complain of abdominal pain, bloating, she denies passing any gas, she has not had a bowel movement this morning denies feeling nauseous, no nausea or vomiting overnight, she continues to complain of suicidal ideation she tells me that I want to kill myself, she did not voice a plan to me specifically but according to nursing staff she had told one of the nursing staff that she wanted to take a knife and stab herself in the neck, denies any visual hallucinations, no auditory hallucinations, no command hallucinations Vitals/I&O/Wt Last Vital Signs Temp 97.7 F 05/20/24 15:58 Pulse 72 05/20/24 15:58 Resp 17 05/20/24 15:58 BP 113/77 05/20/24 15:58 Pulse Ox 93 05/20/24 15:58 O2 Del Method Room Air 05/20/24 15:58 05/20/24 05/20/24 05/20/24 06:59 14:59 22:59 Intake Total 927.5 / 927.5 Balance 927.5 / 927.5 Weight last 48 hrs Weight 75.705 kg Weight 76.113 kg Weight 81.647 kg Physical Exam 2 Const: COMMON NORMALS: no acute distress and patient oriented x3 Resp: COMMON NORMALS: normal respiratory effort, No retractions, No use of accessory muscles and clear to auscultation bilaterally AUSCULTATION: clear to auscultation bilaterally Cardio: COMMON NORMALS: regular rate, regular rhythm, S1 normal heart sound present and S2 normal heart sound present RATE: regular rate RHYTHM: r egular rhythm HEART SOUNDS: S1 normal heart sound present and S2 normal heart sound present GI: COMMON NORMALS: Normal to inspection, nondistended, normoactive bowel sounds present and non-tender OTHER: No guarding, no rebound, no rigidity Extremity: COMMON NORMALS: no pedal edema Neuro: COMMON NORMALS: patient oriented x3 Psych: COMMON NORMALS: mental status grossly normal Data 05/20/24 04:24 05/20/24 04:24 Micro: Microbiology 05/19/24 12:55 Urine Culture - Preliminary Urine,Clean Catch Gram Negative Rods 05/19/24 19:50 Blood Culture - Preliminary Blood SPECIMEN COLLECTED 05/19/24 19:27 Blood Culture - Preliminary Blood SPECIMEN COLLECTED A&P Assessment and plan (1) Urinary tract infection: (2) Abdominal pain: (3) Suicidal ideation: (4) Chronic schizoaffective disorder: Plan Urinary tract infection -Will continue Rocephin -Follow urine culture Partial small bowel obstruction CT/CT abdomen pelvis w con* [id number] IMPRESSION: 1. Findings concerning for partial small bowel obstruction, possibly in the setting of adhesions or transmesenteric hernia in the central abdomen. 2. 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 -Patient was not able to give me any specific details on the reason for her colectomy -This morning reports diffuse abdominal pain, lack of stooling, lack of gas, feeling nauseous however no episode of nausea vomiting overnight ? Plan -For now we will keep n.p.o. due to nausea abdominal pain, lack of stooling, spoke to general surgery, repeat KUB tomorrow, possibly start clears tomorrow based on clinical progress -Repeat KUB shows contrast in the rectosigmoid -Serial abdominal exams -General Surgery has been consulted by the ER Suicidal ideation -Reported active suicidal ideation this morning -Has a 96-hour hold -Suicide precautions, one-to-one sitter Chronic schizoaffective disorder -Reported agitation -Psychiatry has been consulted by ER PT OT evaluation Full code Lovenox for DVT prophylaxis Spoke to patient, spoke to general surgery Attestations 2 Medical Necessity Statement*: Patient requires hospitalization for UTI, partial small bowel obstruction, active suicidal ideation Diagnoses Urinary tract infection N39.0 Abdominal pain R10.9 Suicidal ideation R45.851 Chronic schizoaffective disorder F25.9
--- NOTE | 2024-05-20 17:58 | P.NPUPN_ITS ---
Subjective NPU 2 Subjective: 58-year-old female with a history of thalia izoaffective disorder admitted with suicidal ideation with a plan to cut herself with a knife in the neck. The patient had reported that she has no access to knives at her current facility. She reported that she had been at [facility] for 2 weeks after being transferred from another facility where she was there for 4 years. She had reported continued constipation here on the medical floor. She appeared pleasant and cooperative and appeared in no acute distress in the hospital. She reported no current pain at this time. Patient had remained on n.p.o. She had reported that she was bored. There have been no episodes of aggression noted here by her one-to-one. She has a legal guardian and despite this was on a 96- hour hold. She had minimized having problems with compliance with her medication at the [facility] facility. Mental Status Exam 2 MSE Comments: She is an obese white female who appeared her stated age who was pleasant and cooperative on interview. She had a mild speech impediment with normal rate and volume. There was no evidence of any abnormal involuntary motor movements tics or tremors appreciated. Her mood was described as okay. Her affect was euthymic. Her thought process was linear and logical. She did not endorse any suicidal ideation or homicidal ideation until she was asked about whether she had thoughts of hurting self at which she stated Yes while smiling. She denied any homicidal ideation. There were no overall themes of depression noted or a sense of sadness despite reporting feeling suicidal. She was alert and oriented x 3. Her recent and remote memory appeared grossly intact. Her fund of knowledge appeared poor. She did not appear to be responding to internal stimuli. There was no clear evidence of delusional thinking. Her insight is impaired. Her judgment is poor. Her impulse control appeared fair at this time. Vitals/I&O/Wt Last Vital Signs Temp 97.7 F 05/20/24 15:58 Pulse 72 05/20/24 15:58 Resp 17 05/20/24 15:58 BP 113/77 05/20/24 15:58 Pulse Ox 93 05/20/24 15:58 O2 Del Method Room Air 05/20/24 15:58 05/20/24 05/20/24 05/20/24 06:59 14:59 22:59 Intake Total 927.5 / 927.5 Balance 927.5 / 927.5 Weight last 48 hrs Weight 75.705 kg Weight 76.113 kg Weight 81.647 kg Data NPU 05/20/24 04:24 05/20/24 04:24 Micro: Microbiology 05/19/24 12:55 Urine Culture - Preliminary Urine,Clean Catch Gram Negative Rods 05/19/24 19:50 Blood Culture - Preliminary Blood SPECIMEN COLLECTED 05/19/24 19:27 Blood Culture - Preliminary Blood SPECIMEN COLLECTED Microbiology 05/19/24 12:55 Urine,Clean Catch Urine Culture - Preliminary Gram Negative Rods 05/19/24 19:50 Blood Blood Culture - Preliminary SPECIMEN COLLECTED 05/19/24 19:27 Blood Blood Culture - Preliminary SPECIMEN COLLECTED A&P Assessment and plan (1) Chronic schizoaffective disorder: (2) Impulse control disorder, unspecified: (3) Suicidal ideation: Plan 58-year-old female with a history of borderline intellectual functioning along with a past history of reported auditory hallucinations currently on antipsychotic medications while reporting a history of depressed mood. She does endorse suicidal ideation at this time. She reported that the suicidal ideation appeared to be associated with her pain over the past 3 days. #1. The patient's sister is legal guardian and is apparently aware that she is in the hospital. Her behavioral problems including her 3 day hunger strike appeared to be tied into her abdominal discomfort over past 5 days and lack of bowel movement prior to arrival. At this time, would make minimal changes to psychotropic medications and treat medically. When medically stabilized, discharge back to [facility] would be strongly recommended. She does not appear to have access to sharp weapons at this time and appears perpetually suicidal if asked. I would continue 1-1 at this time. #2. Consider increase in Lexapro to 20 mg to target depression. I would recommend simplification of her psychiatric medications she is on an extremely low-dose of BuSpar and consolidation of these medications would probably be preferable to multiple serotonin agents. Attestations NPU 2 Medical Necessity Statement*: Continue medical treatment: will consider geropsychiatry transfer if necessary. Coding Level of Care Code Acute Code for g Fwd Diagnoses Chronic schizoaffective disorder F25.9 Impulse control disorder, unspecified F63.9 Suicidal ideation R45.851
[2024-05-20] MEDS: trazodone 50 mg Tablet PO (20:58)
[2024-05-20] MEDS: prazosin 1 mg Capsule PO (20:58)
[2024-05-21] VITALS (8 sets, daily range): BP systolic 119–133; BP diastolic 74–88; PULSE 58–89; RESP 14–18; TEMP 36.7–37.1; O2SAT 90–96
[2024-05-21] MEDS: temazepam 15 mg Capsule PO ×2 (01:00→21:19)
[2024-05-21] MEDS: pantoprazole 40 mg SDV IVP ×2 (04:13→15:52)
[2024-05-21] MEDS: cefTRIAXone 1,000 mg SDV 1000 MG IVP (04:13)
[2024-05-21 05:26] LABS: Basophils % 0.6 %; Eosinophils # 0.1 10^3/uL (0.0-0.8); Eosinophils % 3.5 %; Hematocrit 39.5 % (36-47); Lymphocytes # 1.3 10^3/uL (0.8-4.8); Lymphocytes % 38.3 %; Mean Corpuscular HGB Conc 31.1 g/dL (30-55); Mean Corpuscular Hemoglobin 29.7 pg (27-33); Mean Corpuscular Volume 95.4 fl (85-98); Mean Platelet Volume 10.7 fL (7.4-10.4); Monocytes # 0.3 10^3/uL (0.2-0.9); Monocytes % 9.4 %; Neutrophils # 1.63 10^3/uL (1.8-7.7); Neutrophils % 47.6 %; Nucleated Red Blood Cells % 0 %; Platelet Count 214 10^3/cmm (157-399); Red Blood Count 4.14 10^6/uL (3.85-5.65); Red Cell Distribution Width 14.6 % (12.1-15.1); White Blood Count 3.42 10^3/uL (3.29-11.43)
[2024-05-21 05:53] LABS: Alanine Aminotransferase 6 U/L (0-33); Albumin Level 3.2 g/dL (3.5-5.2); Alkaline Phosphatase 125 U/L (35-105); Blood Urea Nitrogen 8 mg/dL (8-23); Calcium 8.5 mg/dL (8.5-10.5); Carbon Dioxide 23 mmol/L (22-29); Chloride 105 mmol/L (98-107); Globulin 2.4 g/dL (1.3-4.6); Glomerular Filtration Rate 162.8 mL/min (90-130); Glucose 77 mg/dL (65-115); Osmolality Calculated 279 mOsm/kg (285-295); Sodium 136 mmol/L (136-145); Total Bilirubin 0.3 mg/dL (0.15-1.2); Total Protein 5.6 g/dL (6.6-8.7)
[2024-05-21 05:55] LABS: Anion Gap 12.1 (5-19); Aspartate Amino Transferase 11 U/L (0-32); Creatinine Clr Calc Pharmacy 142.4742; Potassium 4.1 mmol/L (3.5-5.1)
--- NOTE | 2024-05-21 06:00 | XRR_ITS ---
PROCEDURE INFORMATION: Exam: XR Abdomen Exam date and time: 05/21/2024 9:26 AM Age: 58 years old Clinical indication: Abdominal tenderness; Additional info: Sbo TECHNIQUE: Imaging protocol: Radiologic exam of the abdomen. Views: Frontal supine view of the abdomen. 1 View. COMPARISON: CR XR KUB portable [id number] 05/20/2024 8:40 AM FINDINGS: Gastrointestinal tract: Similar contrast in the rectosigmoid. Stable gaseous distension of the large bowel. Bones/joints: Left hip arthroplasty. XR/XR KUB portable [id number] IMPRESSION: Similar dilatation of the colon. Residual contrast in the rectosigmoid region.
[2024-05-21] MEDS: BuSPIRONE 10 mg Tablet 5 MG PO ×3 (08:13→21:19)
[2024-05-21] MEDS: escitalopram 10 mg Tablet PO (08:14)
[2024-05-21] MEDS: sodium chloride 0.9% 500 ML 75 ML IV (09:42)
--- NOTE | 2024-05-21 11:07 | P.PN_ITS ---
Subjective 2 Subjective: No emesis Contrast of the rectosigmoid Abdomen benign Vitals/I&O/Wt Last Vital Signs Temp 98.1 F 05/21/24 08:00 Pulse 62 05/21/24 08:00 Resp 18 05/21/24 08:00 BP 130/80 05/21/24 08:00 Pulse Ox 92 05/21/24 08:00 O2 Del Method Nasal Cannula 05/21/24 08:00 O2 Flow Rate 2 05/21/24 08:00 05/20/24 05/21/24 05/21/24 22:59 06:59 14:59 Intake Total 1000 / 1927.5 Balance 1000 / 1927.5 Weight last 48 hrs Weight 166 lb 9 oz Weight 166 lb 14.4 oz Weight 167 lb 12.8 oz Weight 180 lb Physical Exam 2 Narrative: Chest: Unlabored breathing room air. No lymphadenopathy. Heart: Regular rate and rhythm. Abdomen: Soft, nontender, nondistended. No masses or lymphadenopathy. Data 05/21/24 04:38 05/21/24 04:38 Micro: Microbiology 05/19/24 19:50 Blood Culture - Preliminary Blood NEGATIVE TO DATE 05/19/24 19:27 Blood Culture - Preliminary Blood NEGATIVE TO DATE 05/19/24 12:55 Urine Culture - Preliminary Urine,Clean Catch Gram Negative Rods A&P Assessment and plan (1) SBO (small bowel obstruction): Plan 58-year-old female with SBO. Contrast in the rectosigmoid. Abdomen benign. Unfortunately not a reliable historian, per patient note not passing gas however no emesis. Okay for clear liquids. Attestations 2 Medical Necessity Statement*: Dr. Fernandes SBO Coding Level of Care Code 91789 Diagnoses SBO (small bowel obstruction) K56.609 Time Spent (min) 30
[2024-05-21] MEDS: enoxaparin 40 mg/0.4 mL Syringe SUBCUT (15:51)
--- NOTE | 2024-05-21 15:55 | P.PN_ITS ---
Subjective 2 Subjective: Patient was seen this morning, nursing staff at bedside, she reports no nausea overnight, no significant abdominal pain, she denies having a bowel movement, is not passing any gas she tells me that she is hungry, Vitals/I&O/Wt Last Vital Signs Temp 98.8 F 05/21/24 12:00 Pulse 69 05/21/24 14:00 Resp 16 05/21/24 12:00 BP 120/76 05/21/24 12:00 Pulse Ox 90 05/21/24 12:00 O2 Del Method Room Air 05/21/24 12:00 O2 Flow Rate 2 05/21/24 08:00 05/21/24 05/21/24 05/21/24 06:59 14:59 22:59 Output Total 200 / 200 Balance -200 / -200 Weight last 48 hrs Weight 75.551 kg Weight 75.705 kg Weight 76.113 kg Physical Exam 2 Const: COMMON NORMALS: no acute distress and patient oriented x3 Resp: COMMON NORMALS: normal respiratory effort, No retractions, No use of accessory muscles and clear to auscultation bilaterally AUSCULTATION: clear to auscultation bilaterally Cardio: COMMON NORMALS: regular rate, regular rhythm, S1 normal heart sound present and S2 normal heart sound present RATE: regular rate RHYTHM: r egular rhythm HEART SOUNDS: S1 normal heart sound present and S2 normal heart sound present GI: COMMON NORMALS: Normal to inspection, nondistended, normoactive bowel sounds present and non-tender Extremity: COMMON NORMALS: no pedal edema Neuro: COMMON NORMALS: patient oriented x3 Psych: COMMON NORMALS: mental status grossly normal Data 05/21/24 04:38 05/21/24 04:38 Micro: Microbiology 05/19/24 19:50 Blood Culture - Preliminary Blood NEGATIVE TO DATE 05/19/24 19:27 Blood Culture - Preliminary Blood NEGATIVE TO DATE A&P Assessment and plan (1) Urinary tract infection: (2) Abdominal pain: (3) Suicidal ideation: (4) Chronic schizoaffective disorder: Plan Urinary tract infection -Will continue Rocephin -Follow urine culture Partial small bowel obstruction CT/CT abdomen pelvis w con* [id number] IMPRESSION: 1. Findings concerning for partial small bowel obstruction, possibly in the setting of adhesions or transmesenteric hernia in the central abdomen. 2. 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 -Patient was not able to give me any specific details on the reason for her colectomy -This morning reports diffuse abdominal pain, lack of stooling, lack of gas, feeling nauseous however no episode of nausea vomiting overnight ? Plan -Possibly try clear liquids today based on clinical progress -Repeat KUB shows contrast in the rectosigmoid -Serial abdominal exams -General Surgery has been consulted by the ER Suicidal ideation -Reported active suicidal ideation this morning -Has a 96-hour hold -Suicide precautions, one-to-one sitter Chronic schizoaffective disorder -Reported agitation -Psychiatry has been consulted by ER PT OT evaluation Full code Lovenox for DVT prophylaxis Spoke to patient, spoke to general surgery, spoke to nursing staff, will possibly transition to clears based on general surgery's recommendations, repeat KUB pending Attestations 2 Medical Necessity Statement*: Patient requires hospitalization for partial small bowel obstruction, UTI, suicidal ideation Diagnoses Urinary tract infection N39.0 Abdominal pain R10.9 Suicidal ideation R45.851 Chronic schizoaffective disorder F25.9
--- NOTE | 2024-05-21 18:30 | PC.NURSE ---
Addendum entered by Joel Lobato RN 05/21/24 18:53: After this note was written, patient has a moderate sized liquid bowel movement. Original Note: SHift SUmmary: patient up to a chair for most of the day. Ambulated 5 times, about 150 feet each time. ALso worked with Physical therapy. Started on clear liquid diet Urine resulted positive for e. Coli KUB still shows Dilation of the colon. Not passing gas, No bowel movement.
--- NOTE | 2024-05-21 18:48 | W.PM.NPUPNS ---
Subjective NPU Subjective: 58-year-old female with a history of schizoaffective disorder admitted with suicidal ideation with a plan to cut herself with a knife in the neck. The patient denied having any thoughts of hurting herself or others. She had been compliant while on one-to-one. She had stated that she was doing okay. When asked about whether she would be able to go back to [facility] she stated maybe . The patient remained on clear liquid diet and she reported feeling hungry but continued to report abdominal discomfort. Mental Status Exam MSE Comments: She is an obese white female who appeared her stated age who was pleasant, polite and cooperative on interview. She had a mild speech impediment with normal rate and volume. There was no evidence of any abnormal involuntary motor movements tics or tremors appreciated. Her mood was described as okay. Her affect was euthymic. Her thought process was linear and logical. She did not endorse any suicidal ideation or homicidal ideation until she was asked about whether she had thoughts of hurting self and reported maybe. She denied any homicidal ideation. There were no overall themes of depression noted or a sense of sadness despite reporting feeling suicidal. She was alert and oriented x 3. Her recent and remote memory appeared grossly intact. Her fund of knowledge appeared poor. She did not appear to be responding to internal stimuli. There was no clear evidence of delusional thinking. Her insight is impaired. Her judgment is poor. Her impulse control appeared fair at this time. Vitals/I&O/Wt Last Vital Signs Temp 98.4 F 05/21/24 16:00 Pulse 69 05/21/24 16:00 Resp 14 05/21/24 16:00 BP 122/74 05/21/24 16:00 Pulse Ox 92 05/21/24 16:00 O2 Del Method Room Air 05/21/24 16:00 O2 Flow Rate 2 05/21/24 08:00 05/21/24 05/21/24 05/21/24 06:59 14:59 22:59 Intake Total 700 / 700 570 / 1270 Output Total 200 / 200 300 / 500 Balance 500 / 500 270 / 770 Weight last 48 hrs Weight 75.551 kg Weight 75.705 kg Data NPU 05/21/24 04:38 05/21/24 04:38 Micro: Microbiology 05/19/24 12:55 Urine Culture - Final Urine,Clean Catch Escherichia coli 10/24/24 19:50 Blood Culture - Preliminary Blood NEGATIVE TO DATE 05/19/24 19:27 Blood Culture - Preliminary Blood NEGATIVE TO DATE Microbiology 05/19/24 12:55 Urine,Clean Catch Urine Culture - Final Escherichia coli 05/19/24 19:50 Blood Blood Culture - Preliminary NEGATIVE TO DATE 05/19/24 19:27 Blood Blood Culture - Preliminary NEGATIVE TO DATE A&P Assessment and plan (1) Chronic schizoaffective disorder: (2) Impulse control disorder, unspecified: (3) Suicidal ideation: Plan 58-year-old female with a history of borderline intellectual functioning along with a past history of reported auditory hallucinations currently on antipsychotic medications while reporting a history of depressed mood. She does endorse suicidal ideation at this time. She reported that the suicidal ideation appeared to be associated with her pain over the past 3 days. #1. The patient's sister is legal guardian and is apparently aware that she is in the hospital. Her behavioral problems including her 3 day hunger strike appeared to be tied into her abdominal discomfort over past 5 days and lack of bowel movement prior to arrival. At this time, would make minimal changes to psychotropic medications and treat medically. When medically stabilized, discharge back to half-way would be strongly recommended. She does not appear to have access to sharp weapons at this time and appears perpetually suicidal if asked. I would continue 1-1 at this time. #2. Continue medications as prescribed. If medically stable in 2-3 days will make attempt to have patient discharged back to [facility]. Attestations NPU Medical Necessity Statement*: Continue medical treatment: Psychiatric hospitalization uncertain at this time. Coding Level of Care Code Acute Code for [facility] Diagnoses Chronic schizoaffective disorder F25.9 Impulse control disorder, unspecified F63.9 Suicidal ideation R45.851
[2024-05-21] MEDS: trazodone 50 mg Tablet PO (21:18)
[2024-05-21] MEDS: prazosin 1 mg Capsule PO (21:18)
[2024-05-22] VITALS (8 sets, daily range): BP systolic 107–129; BP diastolic 72–82; PULSE 58–90; RESP 16–20; TEMP 36.4–37.1; O2SAT 90–93
[2024-05-22] MEDS: cefTRIAXone 1,000 mg SDV 1000 MG IVP (04:47)
[2024-05-22] MEDS: pantoprazole 40 mg SDV IVP (04:47)
[2024-05-22 06:07] LABS: Basophils % 0.2 %; Eosinophils # 0.1 10^3/uL (0.0-0.8); Eosinophils % 2.7 %; Hematocrit 42.3 % (36-47); Lymphocytes # 1.2 10^3/uL (0.8-4.8); Lymphocytes % 26.2 %; Mean Corpuscular HGB Conc 32.4 g/dL (30-55); Mean Corpuscular Hemoglobin 30.9 pg (27-33); Mean Corpuscular Volume 95.3 fl (85-98); Mean Platelet Volume 10.2 fL (7.4-10.4); Monocytes # 0.4 10^3/uL (0.2-0.9); Monocytes % 9.9 %; Neutrophils # 2.68 10^3/uL (1.8-7.7); Neutrophils % 60.5 %; Nucleated Red Blood Cells % 0 %; Platelet Count 231 10^3/cmm (157-399); Red Blood Count 4.44 10^6/uL (3.85-5.65); Red Cell Distribution Width 14.5 % (12.1-15.1); White Blood Count 4.43 10^3/uL (3.29-11.43)
[2024-05-22 06:18] LABS: Alanine Aminotransferase < 5 U/L (0-33); Albumin Level 3.3 g/dL (3.5-5.2); Alkaline Phosphatase 133 U/L (35-105); Anion Gap 11.1 (5-19); Aspartate Amino Transferase 8 U/L (0-32); Blood Urea Nitrogen 5 mg/dL (8-23); Calcium 8.6 mg/dL (8.5-10.5); Carbon Dioxide 26 mmol/L (22-29); Chloride 102 mmol/L (98-107); Creatinine Clr Calc Pharmacy 113.7134; Globulin 2.5 g/dL (1.3-4.6); Glomerular Filtration Rate 125.9 mL/min (90-130); Glucose 90 mg/dL (65-115); Osmolality Calculated 277 mOsm/kg (285-295); Potassium 4.1 mmol/L (3.5-5.1); Sodium 135 mmol/L (136-145); Total Bilirubin 0.3 mg/dL (0.15-1.2); Total Protein 5.8 g/dL (6.6-8.7)
[2024-05-22] MEDS: BuSPIRONE 10 mg Tablet 5 MG PO ×3 (08:50→20:13)
[2024-05-22] MEDS: escitalopram 10 mg Tablet PO (08:50)
--- NOTE | 2024-05-22 14:07 | P.NPUPN_ITS ---
Subjective NPU 2 Subjective: 58-year-old female with a history of thalia izoaffective disorder admitted with suicidal ideation with a plan to cut herself with a knife in the neck. The patient remained on one-to-one observation. He had reported feeling okay. She had tolerated a clear liquid diet and was scheduled to advance to a regular diet soon. The patient had stated that she would be okay with returning to her place of living. She had reported that she had felt that the staff had not been helpful particularly with not helping with putting her legs up when going to sleep. She had not been aggressive and had been very compliant with the treatment medically. She did not appear to be attempting to engage in any self this injurious behavior. Mental Status Exam 2 MSE Comments: She is an obese white female who appeared her stated age who was pleasant, polite and cooperative on interview. She had a mild speech impediment with normal rate and volume. There was no evidence of any abnormal involuntary motor movements, tics or tremors appreciated. Her mood was described as allright. Her affect was slightly restricted. Her thought process was linear and logical. She did not endorse any suicidal ideation or homicidal ideation until she was asked about whether she had thoughts of hurting self and reported maybe. She denied any homicidal ideation. There were no overall themes of depression noted or a sense of sadness despite reporting feeling suicidal. She was alert and oriented x 3. Her recent and remote memory appeared grossly intact. Her fund of knowledge appeared poor. She did not appear to be responding to internal stimuli. There was no clear evidence of delusional thinking. Her insight is impaired. Her judgment is poor. Her impulse control appeared fair at this time. Vitals/I&O/Wt Last Vital Signs Temp 97.6 F 05/22/24 12:00 Pulse 83 05/22/24 12:00 Resp 20 H 05/22/24 07:22 BP 129/82 05/22/24 12:00 Pulse Ox 92 05/22/24 12:00 O2 Del Method Room Air 05/22/24 12:00 O2 Flow Rate 2 05/21/24 08:00 05/21/24 05/22/24 05/22/24 22:59 06:59 14:59 Intake Total 1070 / 1770 840 / 840 Output Total 300 / 500 Balance 770 / 1270 840 / 840 Weight last 48 hrs Weight 75.353 kg Weight 75.551 kg Data NPU 05/22/24 05:12 05/22/24 05:12 Micro: Microbiology 05/19/24 12:55 Urine Culture - Final Urine,Clean Catch Escherichia coli Microbiology 05/19/24 12:55 Urine,Clean Catch Urine Culture - Final Escherichia coli A&P Assessment and plan (1) Chronic schizoaffective disorder: (2) Impulse control disorder, unspecified: (3) Suicidal ideation: Plan 58-year-old female with a history of borderline intellectual functioning along with a past history of reported auditory hallucinations currently on antipsychotic medications while reporting a history of depressed mood. She does endorse suicidal ideation at this time. She reported that the suicidal ideation appeared to be associated with her pain over the past 3 days. #1. The patient's sister is legal guardian and is apparently aware that she is in the hospital. Her behavioral problems including her 3 day hunger strike appeared to be tied into her abdominal discomfort over past 5 days and lack of bowel movement prior to arrival. At this time, would make minimal changes to psychotropic medications and treat medically. When medically stabilized, discharge back to care home would be strongly recommended. She does not appear to have access to sharp weapons at this time and appears perpetually suicidal if asked. I would continue 1-1 at this time. #2. Continue medications as prescribed. If medically stable in 2-3 days will make attempt to have patient discharged back to [facility]. Patient does not require continued inpatient involuntary hold. She has legal guardian. Attestations NPU 2 Medical Necessity Statement*: Continue medical treatment: if medically stable, would recommend social work contact facility and have patient return to longterm. Coding Level of Care Code Acute Code for [facility] Fwd Diagnoses Chronic schizoaffective disorder F25.9 Impulse control disorder, unspecified F63.9 Suicidal ideation R45.851
--- NOTE | 2024-05-22 15:14 | PC.NURSE ---
Patient ambulated in the hallway about 130 feet with her walker, nursing staff walking with her.
--- NOTE | 2024-05-22 15:55 | P.PN_ITS ---
Subjective 2 Subjective: Patient was seen this morning, she is alert to person, to place, not to time but she follows commands no abdominal pain complaints, she had 2 bowel movements overnight, no nausea, no vomiting is tolerating a clear liquid diet Vitals/I&O/Wt Last Vital Signs Temp 97.6 F 05/22/24 12:00 Pulse 83 05/22/24 12:00 Resp 20 H 05/22/24 07:22 BP 129/82 05/22/24 12:00 Pulse Ox 92 05/22/24 12:00 O2 Del Method Room Air 05/22/24 12:00 O2 Flow Rate 2 05/21/24 08:00 05/22/24 05/22/24 05/22/24 06:59 14:59 22:59 Intake Total 1060 / 1060 Balance 1060 / 1060 Weight last 48 hrs Weight 75.353 kg Weight 75.551 kg Physical Exam 2 Const: COMMON NORMALS: no acute distress and patient oriented x3 Resp: COMMON NORMALS: normal respiratory effort, No retractions, No use of accessory muscles and clear to auscultation bilaterally AUSCULTATION: clear to auscultation bilaterally Cardio: COMMON NORMALS: regular rate, regular rhythm, S1 normal heart sound present and S2 normal heart sound present RATE: regular rate RHYTHM: r egular rhythm HEART SOUNDS: S1 normal heart sound present and S2 normal heart sound present GI: COMMON NORMALS: Normal to inspection, nondistended, normoactive bowel sounds present and non-tender Extremity: COMMON NORMALS: no pedal edema Neuro: COMMON NORMALS: patient oriented x3 Psych: COMMON NORMALS: mental status grossly normal Data 05/22/24 05:12 05/22/24 05:12 Micro: Microbiology 05/19/24 12:55 Urine Culture - Final Urine,Clean Catch Escherichia coli A&P Assessment and plan (1) Urinary tract infection: (2) Abdominal pain: (3) Suicidal ideation: (4) Chronic schizoaffective disorder: Plan Urinary tract infection -Transition to cefdinir -Follow urine culture Partial small bowel obstruction CT/CT abdomen pelvis w con* [id number] IMPRESSION: 1. Findings concerning for partial small bowel obstruction, possibly in the setting of adhesions or transmesenteric hernia in the central abdomen. 2. 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 -Patient was not able to give me any specific details on the reason for her colectomy -This morning reports diffuse abdominal pain, lack of stooling, lack of gas, feeling nauseous however no episode of nausea vomiting overnight ? Plan -Advance from clears -Repeat KUB shows contrast in the rectosigmoid -Serial abdominal exams -General Surgery has been consulted by the ER Suicidal ideation -Has a 96-hour hold -Suicide precautions, one-to-one sitter Chronic schizoaffective disorder -Reported agitation -Psychiatry has been consulted by ER PT OT evaluation Full code Lovenox for DVT prophylaxis Attestations 2 Medical Necessity Statement*: Patient requires hospitalization for partial small bowel obstruction, UTI, suicidal [place] Diagnoses Urinary tract infection N39.0 Abdominal pain R10.9 Suicidal ideation R45.851 Chronic schizoaffective disorder F25.9
[2024-05-22] MEDS: enoxaparin 40 mg/0.4 mL Syringe SUBCUT (15:56)
--- NOTE | 2024-05-22 16:25 | PC.NURSE ---
Provider is updated that patients IV pulled out this morning. Provider ordered to changed her protonix and antibiotic that she was getting IV to PO. Patient is due to be discharged tomorrow so no need to start another IV at this time. Nursing staff attempted to start another IV prior to notifying provider, Patient has tremors and IV was unsuccessful.
[2024-05-22] MEDS: pantoprazole DR 40 mg Tablet PO (17:03)
[2024-05-22] MEDS: prazosin 1 mg Capsule PO (20:13)
[2024-05-22] MEDS: temazepam 15 mg Capsule 30 MG PO (20:13)
--- NOTE | 2024-05-22 21:39 | PC.NURSE ---
pt 02 dropping at 87 and sustaining, monitored for 5 minutes and 02 continue to be 87%, pt legs jerks occasionally and pt 02 climbs up to 89% for short period of time and drops down again to 87%. 02 placed set at 1L, 02 sat at 91% with 02
[2024-05-23] VITALS (8 sets, daily range): BP systolic 97–137; BP diastolic 60–87; PULSE 73–105; RESP 17–18; TEMP 36.6–37.1; O2SAT 90–94
--- NOTE | 2024-05-23 06:42 | PC.NURSE ---
pt up to BSC, voided mixed with stool, pt currently sitting up in recliner.
--- NOTE | 2024-05-23 06:58 | PC.NURSE ---
pt stated I don't want to go home today, I don't want to go back, do you think they will let me stay/ nurse stated that is up to the doctors, Pt stated I am suicidal and I don't want to go home today .
[2024-05-23] MEDS: ondansetron 4 MG Tablet PO (07:16)
--- NOTE | 2024-05-23 07:42 | PC.NURSE ---
This nurse went to room to introduce self to pt and 1:1 sitter. When leaving the room, the pt said come here. She stated I'm suicidal. This nurse asked the pt if she just had thoughts or if she had a plan. She replied Get a knife. Then I asked why she needed a knife, she replied If I had a knife I would kill myself The over night nurse who sat 1:1 with the pt, reported the pt stated multiple times she did not want to return to the facility she came from. So, I asked the pt if she was saying she is suicidal because she didn't want to return to facility. The pt responded yes that is why. This nurse told the pt that she shouldn't make statements like unless she is serious about it. The pt stated I don't want to go today. Will reassess during shift assessment.
[2024-05-23] MEDS: escitalopram 10 mg Tablet PO (09:36)
[2024-05-23] MEDS: pantoprazole DR 40 mg Tablet PO ×2 (09:36→17:53)
[2024-05-23] MEDS: cefdinir 300 MG CAPSULE PO ×2 (09:36→17:53)
[2024-05-23] MEDS: BuSPIRONE 10 mg Tablet 5 MG PO ×3 (09:36→21:19)
--- NOTE | 2024-05-23 14:25 | PC.SOCIAL ---
IMM Updated Updated pt on IMM. No questions voiced. Provided pt a copy. Initialed, dated, & timed copy in chart
--- NOTE | 2024-05-23 15:31 | P.PN_ITS ---
Subjective 2 Subjective: - Patient was seen this morning -She continues to state I am suicidal, w hen asked about her plan, she tells me that I am going to stab myself in the neck with a knife, -No abdominal pain, no nausea, no vomiti ng, she has had bowel movements -Discussed with psychiatry as patient co ntinues to have active suicidal ideation, will have to pursue transfer to inpatient psychiatric facility Vitals/I&O/Wt Last Vital Signs Temp 98.1 F 05/23/24 11:43 Pulse 84 05/23/24 11:43 Resp 18 05/23/24 11:43 BP 113/81 05/23/24 11:43 Pulse Ox 94 05/23/24 11:43 O2 Del Method Room Air 05/23/24 11:43 O2 Flow Rate 1 05/23/24 03:45 05/23/24 05/23/24 05/23/24 06:59 14:59 22:59 Intake Total 0 / 1500 360 / 360 Output Total 350 / 350 Balance 0 / 1500 Weight last 48 hrs Weight 75.551 kg Weight 75.353 kg Physical Exam 2 Const: COMMON NORMALS: no acute distress and patient oriented x3 Resp: COMMON NORMALS: normal respiratory effort, No retractions, No use of accessory muscles and clear to auscultation bilaterally AUSCULTATION: clear to auscultation bilaterally Cardio: COMMON NORMALS: regular rate, regular rhythm, S1 normal heart sound present and S2 normal heart sound present RATE: regular rate RHYTHM: r egular rhythm HEART SOUNDS: S1 normal heart sound present and S2 normal heart sound present GI: COMMON NORMALS: Normal to inspection, nondistended, normoactive bowel sounds present and non-tender Extremity: COMMON NORMALS: no pedal edema Neuro: COMMON NORMALS: patient oriented x3 Psych: COMMON NORMALS: mental status grossly normal Data 05/22/24 05:12 05/22/24 05:12 A&P Assessment and plan (1) Urinary tract infection: (2) Abdominal pain: (3) Suicidal ideation: (4) Chronic schizoaffective disorder: Plan Urinary tract infection, urine culture showing E. coli -On cefdinir Partial small bowel obstruction CT/CT abdomen pelvis w con* [id number] IMPRESSION: 1. Findings concerning for partial small bowel obstruction, possibly in the setting of adhesions or transmesenteric hernia in the central abdomen. 2. 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 -Patient was not able to give me any specific details on the reason for her colectomy -Denies any abdominal pain, passing gas, having bowel movements ? Plan -On a regular diet -Repeat KUB shows contrast in the rectosigmoid Suicidal ideation -Has a 96-hour hold -Suicide precautions, one-to-one sitter -Continues to have active suicidal reports, will need to be moved to inpatient psychiatric facility Chronic schizoaffective disorder -Reported agitation -Psychiatry has been consulted by ER PT OT evaluation Full code Lovenox for DVT prophylaxis Attestations 2 Medical Necessity Statement*: Patient requires hospitalization for suicidal ideation spoke to nursing staff, spoke to psychiatry, spoke to patient, spoke to nursing staff Diagnoses Urinary tract infection N39.0 Abdominal pain R10.9 Suicidal ideation R45.851 Chronic schizoaffective disorder F25.9
[2024-05-23] MEDS: enoxaparin 40 mg/0.4 mL Syringe SUBCUT (16:40)
--- NOTE | 2024-05-23 18:19 | P.NPUPN_ITS ---
Subjective NPU 2 Subjective: 58-year-old female with a history of thalia izoaffective disorder admitted with suicidal ideation with a plan to cut herself with a knife in the neck. Patient had reported that she was upset at [facility] because they did not tend to her needs as she stated that when she went to sleep they did not help put her feet up on the bed. The patient had continued to reiterate that she was suicidal at this time. She had stated that she was uncertain as to whether she would be safe to go to [facility]. She had continued to be pleasant and cooperative with no problems noted from her one-to-one. She had appeared to have periods of excess yelling about being suicidal after being informed that she may be leaving back to her correction. Mental Status Exam 2 MSE Comments: She is an obese white female who appeared her stated age who was pleasant, polite and cooperative on interview. She had a mild speech impediment with normal rate and volume. There was no evidence of any abnormal involuntary motor movements, tics or tremors appreciated. Her mood was described as i am suicidal. Her affect appeared euthymic and mood incongruent. Her thought process was linear and logical. She had endorsed contingent suicidality if she were return back to [facility]. She endorsed I am suicidal. She denied any homicidal ideation. There were no overall themes of depression noted or a sense of sadness despite reporting feeling suicidal. She was alert and oriented x 3. Her recent and remote memory appeared grossly intact. Her fund of knowledge appeared poor. She did not appear to be responding to internal stimuli. There was no clear evidence of delusional thinking. Her insight is impaired. Her judgment is poor. Her impulse control appeared limited. Vitals/I&O/Wt Last Vital Signs Temp 98.3 F 05/23/24 16:00 Pulse 93 05/23/24 16:00 Resp 18 05/23/24 16:00 BP 101/67 05/23/24 16:00 Pulse Ox 91 05/23/24 16:00 O2 Del Method Room Air 05/23/24 16:00 O2 Flow Rate 1 05/23/24 03:45 05/23/24 05/23/24 05/23/24 06:59 14:59 22:59 Intake Total 0 / 1500 360 / 360 360 / 720 Output Total 350 / 350 300 / 650 Balance 0 / 1500 10 60 / 70 Weight last 48 hrs Weight 75.551 kg Weight 75.353 kg Data NPU 05/22/24 05:12 05/22/24 05:12 A&P Assessment and plan (1) Chronic schizoaffective disorder: (2) Impulse control disorder, unspecified: (3) Suicidal ideation: Plan 58-year-old female with a history of borderline intellectual functioning along with a past history of reported auditory hallucinations currently on antipsychotic medications while reporting a history of depressed mood. She does endorse suicidal ideation at this time. She reported that the suicidal ideation appeared to be associated with her pain over the past 3 days. #1. The patient's sister is legal guardian and is apparently aware that she is in the hospital. Her behavioral problems including her 3 day hunger strike appeared to be tied into her abdominal discomfort over past 5 days and lack of bowel movement prior to arrival. At this time, would make minimal changes to psychotropic medications and treat medically. When medically stabilized, discharge back to assisted would be strongly recommended. She does not appear to have access to sharp weapons at this time and appears perpetually suicidal if asked. I would continue 1-1 at this time. #2. Patient reports suicidality, seek geriatric psychiatry placement, she is not a candidate for this mileu as she requires aid for self care including excretion. No change in medication recommended. Attestations NPU 2 Medical Necessity Statement*: Seek geriatric psychiatric hospitalization if not able to return back to [facility]. Coding Level of Care Code Acute Code for [facility] Fwd Diagnoses Chronic schizoaffective disorder F25.9 Impulse control disorder, unspecified F63.9 Suicidal ideation R45.851
[2024-05-23] MEDS: temazepam 15 mg Capsule 30 MG PO (21:19)
[2024-05-23] MEDS: prazosin 1 mg Capsule PO (21:19)
[2024-05-24] VITALS (7 sets, daily range): BP systolic 110–138; BP diastolic 75–86; PULSE 81–96; RESP 15–17; TEMP 36.3–37.1; O2SAT 90–92
[2024-05-24] MEDS: BuSPIRONE 10 mg Tablet 5 MG PO ×3 (07:47→20:26)
[2024-05-24] MEDS: pantoprazole DR 40 mg Tablet PO ×2 (07:48→17:33)
[2024-05-24] MEDS: cefdinir 300 MG CAPSULE PO ×2 (07:48→17:33)
[2024-05-24] MEDS: escitalopram 10 mg Tablet PO (07:48)
--- NOTE | 2024-05-24 08:17 | ECG_ITS ---
[facility] Test Date: 2024-05-24 Pat Name: Darlene Joseph Department: Room: 267 Gender: Female [employer] Developer: : 1965 Requested By: Samson Mc Order Number: [id number] Sigrid MD: Neville Tarango M.D. Measurements Intervals [place] Rate: 85 P: 25 MI: 159 QRS: 11 QRSD: 94 T: 5 QT: 348 QTc: 416 Interpretive Statements SINUS RHYTHM Normal ECG Compared to ECG 05/19/2024 12:54:50 Myocardial infarct finding no longer present Electronically Signed On 05-24-2024 11:04:36 CDT by Neville Tarango M.D. [email or web address]
[2024-05-24 08:56] LABS: SARS Covid-2 Antigen negative (Negative)
[2024-05-24] MEDS: enoxaparin 40 mg/0.4 mL Syringe SUBCUT (15:41)
--- NOTE | 2024-05-24 15:54 | P.PN_ITS ---
Subjective 2 Subjective: Patient was seen this morning, she is alert to person, to place, not to time she follows all commands, she keeps telling me that she is suicidal, she has no other complaints, Vitals/I&O/Wt Last Vital Signs Temp 97.7 F 05/24/24 11:48 Pulse 88 05/24/24 11:48 Resp 17 05/24/24 11:48 BP 110/76 05/24/24 11:48 Pulse Ox 92 05/24/24 11:48 O2 Del Method Room Air 05/24/24 11:48 O2 Flow Rate 1 05/23/24 03:45 05/24/24 05/24/24 05/24/24 06:59 14:59 22:59 Intake Total 60 / 900 720 / 720 Balance 60 / 250 720 / 720 Weight last 48 hrs Weight 78.789 kg Weight 75.551 kg Physical Exam 2 Const: COMMON NORMALS: no acute distress and patient oriented x3 Resp: COMMON NORMALS: normal respiratory effort, No retractions, No use of accessory muscles and clear to auscultation bilaterally AUSCULTATION: clear to auscultation bilaterally Cardio: COMMON NORMALS: regular rate, regular rhythm, S1 normal heart sound present and S2 normal heart sound present RATE: regular rate RHYTHM: r egular rhythm HEART SOUNDS: S1 normal heart sound present and S2 normal heart sound present GI: COMMON NORMALS: Normal to inspection, nondistended, normoactive bowel sounds present and non-tender Extremity: COMMON NORMALS: no pedal edema Neuro: COMMON NORMALS: patient oriented x3 Psych: COMMON NORMALS: mental status grossly normal Data 05/22/24 05:12 05/22/24 05:12 A&P Assessment and plan (1) Urinary tract infection: (2) Abdominal pain: (3) Suicidal ideation: (4) Chronic schizoaffective disorder: Plan Urinary tract infection, urine culture showing E. coli -On cefdinir Partial small bowel obstruction CT/CT abdomen pelvis w con* [id number] IMPRESSION: 1. Findings concerning for partial small bowel obstruction, possibly in the setting of adhesions or transmesenteric hernia in the central abdomen. 2. 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 -Patient was not able to give me any specific details on the reason for her colectomy -Denies any abdominal pain, passing gas, having bowel movements ? Plan -On a regular diet -Repeat KUB shows contrast in the rectosigmoid Suicidal ideation -Has a 96-hour hold -Suicide precautions, one-to-one sitter -Continues to have active suicidal reports, will need to be moved to inpatient psychiatric facility Chronic schizoaffective disorder -Reported agitation -Psychiatry has been consulted by ER PT OT evaluation Full code Lovenox for DVT prophylaxis Attestations 2 Medical Necessity Statement*: Patient requires hospitalization for suicidal ideation, requiring placement to geriatric psychiatric facility Diagnoses Urinary tract infection N39.0 Abdominal pain R10.9 Suicidal ideation R45.851 Chronic schizoaffective disorder F25.9
--- NOTE | 2024-05-24 18:12 | W.PM.NPUPNS ---
Subjective NPU Subjective: 58-year-old female with a history of schizoaffective disorder admitted with suicidal ideation with a plan to cut herself with a knife in the neck. The patient had continued to endorse feeling suicidal. She did not report a plan. She had stated that she did not wish to return to [place]. She continued to appear helpless asking staff to lift her legs onto the bed and asking providers to flush her pillow. She had appeared to walk well with no problems reported with physical therapy. Patient had appeared to defecate in her bed after she had become angry. No changes in medications were recommended. The patient had expressed desire not to [facility] to the [facility] but was informed that she would likely be returning there as requested by guardian. Mental Status Exam MSE Comments: She is an obese white female who appeared her stated age who was pleasant, polite and cooperative on interview. She had a mild speech impediment with normal rate and volume. There was no evidence of any abnormal involuntary motor movements, tics or tremors appreciated. Her mood was described as i am suicidal. Her affect appeared somewhat subdued today. Her thought process was linear and logical. She had endorsed contingent suicidality if she were [facility] to [facility]. She endorsed I am suicidal. She denied any homicidal ideation. There were no overall themes of depression noted or a sense of sadness despite reporting feeling suicidal. She was alert and oriented x 3. Her recent and remote memory appeared grossly intact. Her fund of knowledge appeared poor. She did not appear to be responding to internal stimuli. There was no clear evidence of delusional thinking. Her insight is impaired. Her judgment is poor. Her impulse control appeared limited. Vitals/I&O/Wt Last Vital Signs Temp 97.4 F L 05/24/24 16:13 Pulse 85 05/24/24 16:13 Resp 17 05/24/24 16:13 BP 117/82 05/24/24 16:13 Pulse Ox 92 05/24/24 16:13 O2 Del Method Room Air 05/24/24 16:13 O2 Flow Rate 1 05/23/24 03:45 05/24/24 05/24/24 05/24/24 06:59 14:59 22:59 Intake Total 60 / 900 720 / 720 240 / 960 Balance 60 / 250 720 / 720 240 / 960 Weight last 48 hrs Weight 78.789 kg Weight 75.551 kg Data NPU 05/22/24 05:12 05/22/24 05:12 A&P Assessment and plan (1) Chronic schizoaffective disorder: (2) Impulse control disorder, unspecified: (3) Suicidal ideation: Plan 58-year-old female with a history of borderline intellectual functioning along with a past history of reported auditory hallucinations currently on antipsychotic medications while reporting a history of depressed mood. She does endorse suicidal ideation at this time. She reported that the suicidal ideation appeared to be associated with her pain over the past 3 days. #1. The patient's sister is legal guardian and is apparently aware that she is in the hospital. I would [facility] to her [facility] when stabilized. #2. Patient reports suicidality, but appears to be behavioral as she appears to have a safety plan that prevents her access from specific objects in her [facility] of [facility]. Attestations NPU Medical Necessity Statement*: Recommend return back to previous [facility] as soon as stablized medically. Coding Level of Care Code Acute Code for [facility] Fwd Diagnoses Chronic schizoaffective disorder F25.9 Impulse control disorder, unspecified F63.9 Suicidal ideation R45.851
--- NOTE | 2024-05-24 18:38 | PC.NURSE ---
emergency contact added- Bony Jensen(friend) [phone]
[2024-05-24] MEDS: temazepam 15 mg Capsule 30 MG PO (20:26)
[2024-05-24] MEDS: prazosin 1 mg Capsule PO (20:26)
[2024-05-25] VITALS: BP 103/66; PULSE 79; RESP 18; TEMP 36.4; O2SAT 93
[2024-05-25 04:00] VITALS: BP 107/71; PULSE 80; RESP 18; TEMP 36.4; O2SAT 92
[2024-05-25 07:58] VITALS: BP 129/64; PULSE 84; RESP 16; TEMP 36.4; O2SAT 93
[2024-05-25] MEDS: BuSPIRONE 10 mg Tablet 5 MG PO (08:29)
[2024-05-25] MEDS: pantoprazole DR 40 mg Tablet PO (08:29)
[2024-05-25] MEDS: cefdinir 300 MG CAPSULE PO (08:29)
[2024-05-25] MEDS: escitalopram 10 mg Tablet PO (08:29)
--- NOTE | 2024-05-25 09:06 | PC.SOCIAL ---
IMM Update pg 2 of IMM not updated as patient is on a 96 hour hold and transferring to [facility] and not anticipated to DC in 24-48 hours.
--- NOTE | 2024-05-25 10:56 | PC.NURSE ---
This nurse called report to RIRI Das at [facility] at 1056am.
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
[2024-05-25 12:00] VITALS: BP 118/57; PULSE 95; RESP 16; O2SAT 92
== END 2024-05-25 13:53 | DRG 690 ==
LOC: ER 14:42 → MEDSURG 15:34
PROVIDERS: Admitting Provider Family Medicine; Emergency Provider Emergency Medicine; Visit Provider Family Medicine
DX: N39.0 Urinary tract infection, site not specified (principal); K56.609 Unspecified intestinal obstruction, unspecified as to partial versus complete obstruction; K59.39 Other megacolon; R45.851 Suicidal ideations; B96.20 Unspecified Escherichia coli [E. coli] as the cause of diseases classified elsewhere; F25.9 Schizoaffective disorder, unspecified; F63.9 Impulse disorder, unspecified; E66.9 Obesity, unspecified; Z68.32 Body mass index [BMI] 32.0-32.9, adult; Z90.49 Acquired absence of other specified parts of digestive tract
CPT/HCPCS: 0241U; 36415; 71045; 74018; 74177; 80053; 80061; 80306; 80307; 81001; 82140; 83036; 83605; 83690; 83880; 84145; 84443; 85025; 86140; 87040; 87077; 87086; 87186; 87426; 93005; 96372; 96374; 96375; 97110; 97116; 97161; 97165; 97530; 99285; J0696; J1650; J2405; J2470; J3490; J7030; J7042; Q0162